=== PATIENT | female | born 1935 | race Caucasian/White ===

== ENCOUNTER → 2016-07-08 16:50 | Outpatient (CLI) | payer MEDICARE, OTHER ==
[2013-06-06 13:04] VITALS: BMI 22.7
[~2016-07-08 16:50] MED LIST: ELAVIL25 MG PO; FOLIC ACID1 MG PO; LASIX20 MG PO; PRILOSEC20 MG PO; SYNTHROID50 MCG PO
== END | disposition home or self-care (01) ==
LOC: D.MAMMO 09:15
DX: Z12.31 Encounter for screening mammogram for malignant neoplasm of breast (principal)

== ENCOUNTER → 2017-07-23 09:33 | Outpatient (CLI) | payer MEDICARE, OTHER ==
[2013-06-06 13:04] VITALS: BMI 22.7
== END | disposition home or self-care (01) ==
LOC: D.MAMMO 09:33
DX: Z12.31 Encounter for screening mammogram for malignant neoplasm of breast (principal)

== ENCOUNTER 2018-05-02 10:36 | Emergency (ER) | payer MEDICARE, OTHER ==
[~2018-05-02] VITALS: Ht 162.6 cm; Wt 53.1 kg
[2018-05-02 10:40] VITALS: BP 137/73; Ht 162.6 cm; Wt 53.1 kg
[2018-05-02] MEDS ORDERED: VIBRAMYCIN 100100 MG PO (11:15)
== END 2018-05-02 11:27 | disposition home or self-care (01) ==
LOC: D.ER 10:36
DX: S59.912A Unspecified injury of left forearm, initial encounter (principal); W19.XXXA Unspecified fall, initial encounter; Y93.89 Activity, other specified; Y92.019 Unspecified place in single-family (private) house as the place of occurrence of the external cause; S51.802A Unspecified open wound of left forearm, initial encounter

== ENCOUNTER 2018-05-02 19:19 | Emergency (ER) | payer MEDICARE, OTHER ==
[~2018-05-02] VITALS: Ht 162.6 cm; Wt 53.2 kg
[~2018-05-02 19:19] MED LIST changes: +VIBRAMYCIN 100100 MG PO
[2018-05-02 19:25] VITALS: Ht 162.6 cm; Wt 53.2 kg
[2018-05-02 21:44] VITALS: BP 148/65
== END 2018-05-02 21:45 | disposition home or self-care (01) ==
LOC: D.ER 19:19
DX: S51.801A Unspecified open wound of right forearm, initial encounter (principal)

== ENCOUNTER 2018-05-03 04:23 | Emergency (ER) | payer MEDICARE, OTHER ==
[~2018-05-03] VITALS: Ht 162.6 cm; Wt 53.2 kg
[2018-05-03 04:31] VITALS: Ht 162.6 cm; Wt 53.2 kg
[2018-05-03 05:53] VITALS: BP 132/79
[2018-05-04] MEDS ORDERED: CLEOCIN HCL300 MG PO (09:18)
== END 2018-05-03 05:53 | disposition home or self-care (01) ==
LOC: D.ER 04:23
DX: S51.811D Laceration without foreign body of right forearm, subsequent encounter (principal); X58.XXXD Exposure to other specified factors, subsequent encounter

== ENCOUNTER 2018-05-04 07:40 | Emergency (ER) | payer MEDICARE, OTHER ==
[~2018-05-04] VITALS: Ht 162.6 cm; Wt 53.2 kg
[2018-05-04 07:47] VITALS: BP 133/72; Ht 162.6 cm; Wt 53.2 kg
[2018-05-04] MEDS ORDERED: CLEOCIN HCL300 MG PO (09:18)
== END 2018-05-04 10:35 | disposition home or self-care (01) ==
LOC: D.ER 07:40
DX: S51.811D Laceration without foreign body of right forearm, subsequent encounter (principal); X58.XXXD Exposure to other specified factors, subsequent encounter; R60.0 Localized edema

== ENCOUNTER → 2019-10-13 16:56 | Outpatient (CLI) | payer MEDICARE, BC ==
[2018-05-04 07:47] VITALS: BMI 20.1
[~2019-10-13 16:56] MED LIST changes: +CLEOCIN HCL300 MG PO
[2019-10-13 17:26] LABS: HEMATOCRIT 38.6 % (36.0-48.0); HEMOGLOBIN 12.4 g/dL (12-16); MCH 30.5 pg (26.0-34.0); MCHC 32.1 g/dL (31.0-37.0); MCV 95.1 fL (80.0-100.0); MEAN PLATELET VOLUME 10.8 fL (7.4-10.4); PLATELET COUNT 185 10x3/uL (130-400); RBC 4.06 10x6/uL (4.00-5.40); RDW 15.7 % (11.5-14.5); WBC 4.6 10x3/uL (4.8-10.8)
[2019-10-13 18:17] LABS: EOSINOPHILS 2 % (0-7); LYMPHOCYTES 44 % (15-50); MONOCYTES 2 % (2-11); NEUTROPHILS 52 % (40-80); PLATELET ESTIMATE NORMAL
== END | disposition home or self-care (01) ==
LOC: D.LABREF 16:56
PROVIDERS: ATTEND Legal Medicine
DX: C88.0 Waldenstrom macroglobulinemia (principal)